=== PATIENT | male | born 1950 | race Caucasian/White ===

== ENCOUNTER 2018-05-25 07:12 | Day surgery (SDC) | payer MEDICARE, BC ==
[2018-05-25] VITALS (15 sets, daily range): BP systolic 106–138; BP diastolic 61–89
[~2018-05-25] VITALS: Ht 175.3 cm; Wt 88.5 kg
[2018-05-25] MEDS ORDERED: normal saline 1000ml 1,000 ML IV SCH (07:40)
[2018-05-25] MEDS ORDERED: MIDAZolam 5mg/ml 2ml vial IV ONE (07:40)
[2018-05-25] MEDS ORDERED: fentaNYL/PF 50MCG/1 ML 2ML syringe IV ONE (07:40)
[2018-05-25 08:02] LABS: ALBUMIN 3.6 G/DL (3.4-5.0); ANION GAP 10 (8-16); BLOOD UREA NITROGEN 19 MG/DL (7-18); CALCIUM 8.6 MG/DL (8.5-10.1); CHLORIDE 102 MMOL/L (99-107); CREATININE 1.12 MG/DL (0.60-1.10); GLUCOSE 82 MG/DL (70-104); MAGNESIUM 1.8 MG/DL (1.5-2.4); POTASSIUM 4.3 MMOL/L (3.5-5.1); SODIUM 139 MMOL/L (135-145); TOTAL CARBON DIOXIDE 26.9 MMOL/L (24-32); eGFR 66 ML/MIN
[2018-05-25 08:08] LABS: BASOPHILS % (AUTO) 0.7 % (0-1); EOSINOPHILS # (AUTO) 0.1 X10'3 (0-0.9); EOSINOPHILS % (AUTO) 3.2 % (0-6); LYMPHOCYTES # (AUTO) 1.2 X10'3 (1.1-4.8); LYMPHOCYTES % (AUTO) 26.1 % (21-51); MEAN CORPUSCULAR HGB CONC 33.4 % (33.0-36.5); MEAN CORPUSCULAR VOLUME 95.9 FL (78-98); MEAN PLATELET VOLUME 8.3 FL (7.4-10.4); MONOCYTES # (AUTO) 0.2 X10'3 (0-0.9); MONOCYTES % (AUTO) 5.2 % (2-12); NEUTROPHILS % (AUTO) 64.8 % (42-75); PRE OP HEMATOCRIT 49.8 % (42.0-52.0); PRE OP HEMOGLOBIN 16.6 g/dL (14.0-17.9); PRE OP PLATELET COUNT 172 X10'3 (140-440); RED BLOOD COUNT 5.19 X10'6 (4.70-6.10); RED CELL DISTRIBUTION WIDTH 12.9 % (11.5-14.5)
[2018-05-25] MEDS ORDERED: pneumococcal 23-VAL P-sac vacc 25 mcg/0.5ml vial IMVAC ONE (08:10)
[2018-05-25 08:57] LABS: PROTHROMBIN TIME 10.4 SECONDS (9.0-12.0)
[2018-05-25] MEDS ORDERED: LOSA25TA96 PO (10:10)
[2018-05-25] MEDS ORDERED: APIX5TAB3 PO (10:10)
[2018-05-25] MEDS ORDERED: FLEC100T2 PO (10:10)
[2018-05-25] MEDS ORDERED: VERA240T PO (10:10)
[2018-05-25] MEDS ORDERED: AMPH20CA3 PO (10:10)
[2018-05-25] MEDS ORDERED: TADA5TAB2 PO (10:10)
== END 2018-05-25 11:05 | disposition home or self-care (01) ==
LOC: SSTAY O 07:12
PROVIDERS: ATTEND Internal Medicine Cardiovascular Disease
DX: I48.91 Unspecified atrial fibrillation (principal); F98.8 Other specified behavioral and emotional disorders with onset usually occurring in childhood and adolescence; Z96.652 Presence of left artificial knee joint; Z98.890 Other specified postprocedural states
CPT/HCPCS: 36415; 80048; 83735; 85025; 85610; 92960; 93005; J2250; J3010; J7030

== ENCOUNTER 2023-03-07 06:42 | Day surgery (SDC) | payer MEDICARE, BC ==
[~2023-03-07] VITALS: Ht 175.3 cm; Wt 99.1 kg
[~2023-03-07 06:42] MED LIST: AMPH20CA3 PO; APIX5TAB3 PO; FLEC100T2 PO; LOSA25TA96 PO; TADA5TAB2 PO; VERA240T PO
[2023-03-07] MEDS ORDERED: MIDAZolam 1mg/ml 10ml vial IV ONE (07:00)
[2023-03-07] MEDS ORDERED: normal saline 1000ml 1,000 ML IV SCH (07:00)
[2023-03-07] MEDS ORDERED: fentaNYL/PF 50MCG/1 ML 2ML syringe IV ONE (07:00)
[2023-03-07 07:20] VITALS: BP 119/76; PULSE 57; RESP 16; TEMP 98.2; O2SAT 95
[2023-03-07 07:42] LABS: BASOPHILS # (AUTO) 0.1 X10'3 (0-0.2); BASOPHILS % (AUTO) 1.6 % (0-1); EOSINOPHILS # (AUTO) 0.1 X10'3 (0-0.9); EOSINOPHILS % (AUTO) 1.6 % (0-6); LYMPHOCYTES # (AUTO) 1.5 X10'3 (1.1-4.8); LYMPHOCYTES % (AUTO) 28.5 % (21-51); MEAN CORPUSCULAR HEMOGLOBIN 32.8 PG (27.0-31.0); MEAN CORPUSCULAR HGB CONC 34.2 g/dL (33.0-36.5); MEAN CORPUSCULAR VOLUME 96.1 FL (78-98); MEAN PLATELET VOLUME 8.6 FL (7.4-10.4); MONOCYTES # (AUTO) 0.4 X10'3 (0-0.9); MONOCYTES % (AUTO) 7.5 % (2-12); NEUTROPHILS # (AUTO) 3.2 X10'3 (1.8-7.7); NEUTROPHILS % (AUTO) 60.8 % (42-75); PLATELET COUNT 164 X10'3 (140-440); RED BLOOD COUNT 5.52 X10'6 (4.70-6.10); RED CELL DISTRIBUTION WIDTH 14.8 % (11.5-14.5); WHITE BLOOD COUNT 5.2 X10'3 (4.5-11.0)
[2023-03-07 07:46] LABS: HEMOGLOBIN 18.1 g/dl (14.0-17.9)
[2023-03-07] MEDS ORDERED: LOSA50TA64 PO (08:01)
[2023-03-07] MEDS ORDERED: CHOL10006 PO (08:13)
[2023-03-07] MEDS ORDERED: MULT-1085 PO (08:13)
[2023-03-07] MEDS ORDERED: ZINC50TA60 PO (08:13)
[2023-03-07] MEDS ORDERED: MAGN250T11 PO (08:13)
[2023-03-07] MEDS ORDERED: TESTOSTERONE (08:13)
[2023-03-07] MEDS ORDERED: FLO0.4C (08:18)
[2023-03-07] MEDS ORDERED: LISD60CA PO (08:18)
[2023-03-07] MEDS ORDERED: QUET50TA24 (08:18)
[2023-03-07] MEDS ORDERED: PROP10TA10 (08:18)
[2023-03-07] MEDS ORDERED: AMLO5TAB16 PO (08:18)
[2023-03-07 08:47] LABS: ALBUMIN 3.7 G/DL (3.4-5.0); ANION GAP 11 (8-16); BLOOD UREA NITROGEN 19 MG/DL (7-18); BUN/CREATININE RATIO 14.4 (10.0-20.0); CHLORIDE 100 MMOL/L (99-107); CREATININE 1.32 MG/DL (0.60-1.10); POTASSIUM 4.2 MMOL/L (3.5-5.1); SODIUM 138 MMOL/L (135-145); TOTAL CARBON DIOXIDE 27.5 MMOL/L (24-32); eGFR 54 ML/MIN
[2023-03-07 09:30] LABS: GLUCOSE 88 MG/DL (70-104); MAGNESIUM 1.8 MG/DL (1.5-2.4)
== END 2023-03-07 12:05 | disposition home or self-care (01) ==
LOC: SSTAY O 06:42
PROVIDERS: ATTEND Internal Medicine Cardiovascular Disease
DX: I48.91 Unspecified atrial fibrillation (principal); Z53.29 Procedure and treatment not carried out because of patient's decision for other reasons; I10 Essential (primary) hypertension; F98.8 Other specified behavioral and emotional disorders with onset usually occurring in childhood and adolescence; Z79.01 Long term (current) use of anticoagulants; Z79.899 Other long term (current) drug therapy; Z98.890 Other specified postprocedural states; Z96.652 Presence of left artificial knee joint
CPT/HCPCS: 36415; 80048; 83735; 85025; 85610; 93005; J2250; J3010; J7030; A4620

== ENCOUNTER 2023-03-10 07:43 | Day surgery (SDC) | payer MEDICARE, BC ==
[~2023-03-10] VITALS: Ht 172.7 cm; Wt 99.8 kg
[2023-03-10] VITALS (12 sets, daily range): BP systolic 119–157; BP diastolic 72–115; PULSE 49–76; RESP 12–18; TEMP 98.1; O2SAT 95–97
[~2023-03-10 07:43] MED LIST changes: +AMLO5TAB16 PO; -AMPH20CA3 PO; +CHOL10006 PO; +FLO0.4C; +LISD60CA PO; -LOSA25TA96 PO; +LOSA50TA64 PO; +MAGN250T11 PO; +MULT-1085 PO; +PROP10TA10; +QUET50TA24; +TESTOSTERONE; -VERA240T PO; +ZINC50TA60 PO
[2023-03-10] MEDS ORDERED: normal saline 1000ml 1,000 ML IV SCH (08:00)
[2023-03-10] MEDS ORDERED: MIDAZolam 1mg/ml 10ml vial IV ONE (08:00)
[2023-03-10] MEDS ORDERED: fentaNYL/PF 50MCG/1 ML 2ML syringe IV ONE (08:00)
== END 2023-03-10 11:05 | disposition home or self-care (01) ==
LOC: SSTAY O 07:43
PROVIDERS: ATTEND Internal Medicine Cardiovascular Disease
DX: I48.91 Unspecified atrial fibrillation (principal); I10 Essential (primary) hypertension; F98.8 Other specified behavioral and emotional disorders with onset usually occurring in childhood and adolescence; Z79.899 Other long term (current) drug therapy; Z79.01 Long term (current) use of anticoagulants; Z96.652 Presence of left artificial knee joint; Z98.890 Other specified postprocedural states
CPT/HCPCS: 92960; 93005; J2250; J3010; J7030

== ENCOUNTER 2024-09-27 07:49 | Day surgery (SDC) | payer MEDICARE, BC ==
[~2024-09-27] VITALS: Ht 175.3 cm; Wt 94.1 kg
[2024-09-27] VITALS (7 sets, daily range): BP systolic 95–131; BP diastolic 46–80; PULSE 42–77; RESP 8–19; TEMP 98.5; O2SAT 88–96
[2024-09-27] MEDS ORDERED: SPIR25TA5 (08:17)
[2024-09-27] MEDS ORDERED: cefazolin 2gm/D5W 100mL 100 ML IV ONE (08:50)
[2024-09-27 08:52] LABS: ALBUMIN 3.4 G/DL (3.4-5.0); ANION GAP 8 (8-16); BASOPHILS % (AUTO) 0.5 % (0-1); BLOOD UREA NITROGEN 17 MG/DL (7-18); BUN/CREATININE RATIO 14.3 (10.0-20.0); CALCIUM 8.8 MG/DL (8.5-10.1); CHLORIDE 100 MMOL/L (99-107); CREATININE 1.19 MG/DL (0.60-1.10); EOSINOPHILS # (AUTO) 0.1 X10'3 (0-0.9); GLUCOSE 95 MG/DL (70-104); HEMATOCRIT 49.2 % (42.0-52.0); HEMOGLOBIN 16.5 g/dl (14.0-17.9); LYMPHOCYTES # (AUTO) 1.2 X10'3 (1.1-4.8); LYMPHOCYTES % (AUTO) 16.7 % (21-51); MAGNESIUM 2.1 MG/DL (1.5-2.4); MEAN CORPUSCULAR HEMOGLOBIN 31.9 PG (27.0-31.0); MEAN CORPUSCULAR HGB CONC 33.4 g/dL (33.0-36.5); MEAN CORPUSCULAR VOLUME 95.5 FL (78-98); MEAN PLATELET VOLUME 8.3 FL (7.4-10.4); MONOCYTES # (AUTO) 0.5 X10'3 (0-0.9); MONOCYTES % (AUTO) 7.6 % (2-12); NEUTROPHILS # (AUTO) 5.2 X10'3 (1.8-7.7); NEUTROPHILS % (AUTO) 73.2 % (42-75); PLATELET COUNT 194 X10'3 (140-440); POTASSIUM 4.1 MMOL/L (3.5-5.1); RED BLOOD COUNT 5.16 X10'6 (4.70-6.10); RED CELL DISTRIBUTION WIDTH 15.3 % (11.5-14.5); SODIUM 135 MMOL/L (135-145); TOTAL CARBON DIOXIDE 26.8 MMOL/L (24-32); WHITE BLOOD COUNT 7.1 X10'3 (4.5-11.0); eCRCL 56 ML/MIN; eGFR 60 ML/MIN
[2024-09-27 08:53] LABS: PROTHROMBIN TIME 10.8 SECONDS (9.0-12.0)
[2024-09-27] MEDS ORDERED: ceFAZolin 2gm in dextrose, iso 50 ML IV ONE (08:54)
[2024-09-27] MEDS ORDERED: LIDOcaine 1% W/epiNEPHrine 1:100,000 20ml vial ONE (08:54)
[2024-09-27] MEDS ORDERED: fentaNYL/PF 50MCG/1 ML 2ML syringe ONE ×2 (08:54→10:28)
[2024-09-27] MEDS ORDERED: vancomycin 1,000mg inj ONE (08:55)
[2024-09-27] MEDS ORDERED: midazolam 1 mg/ML 2ml injection ONE ×6 (08:55→11:25)
[2024-09-27] MEDS: VANCOMYCIN/H2O 1.5g/300mL PB 300 ML IV ONE (09:00)
[2024-09-27] MEDS ORDERED: iohexol 350 MG/ML 50ML vial IV ONE ×2 (09:23→10:15)
[2024-09-27] MEDS ORDERED: HYDROmorphone 1 mg/ml syringe ONE ×2 (09:55→10:50)
[2024-09-27] MEDS ORDERED: proCHLORperazine 10 MG/2 ml inj ONE (11:21)
[2024-09-27] MEDS ORDERED: flumazenil 0.1 mg/ml inj. 10mL vial IV ONE (11:34)
[2024-09-27] MEDS ORDERED: normal saline 500ml IV soln 500 ML IV ONE (12:10)
== END 2024-09-27 13:25 | disposition home or self-care (01) ==
LOC: SSTAY O 07:49
PROVIDERS: ATTEND Internal Medicine Cardiovascular Disease
DX: I44.7 Left bundle-branch block, unspecified (principal); I42.0 Dilated cardiomyopathy; I48.91 Unspecified atrial fibrillation; I42.9 Cardiomyopathy, unspecified; I50.22 Chronic systolic (congestive) heart failure; I11.0 Hypertensive heart disease with heart failure; Z79.01 Long term (current) use of anticoagulants; Z79.899 Other long term (current) drug therapy; Z98.890 Other specified postprocedural states
CPT/HCPCS: 33225; 33249; 36415; 71045; 80048; 83735; 85025; 85610; 92960; 93005; 99152; 99153; A4565; A4615; C1769; C1882; J0780; J1171; J2250; J3010; J3370; J3372; J3490; J7030; Q9967; Z7610; C1895; C1898; C1900

== ENCOUNTER 2025-02-18 08:47 | Day surgery (SDC) | payer MEDICARE, BC ==
[~2025-02-18] VITALS: Ht 175.3 cm; Wt 95.4 kg
[2025-02-18] VITALS (7 sets, daily range): BP systolic 103–121; BP diastolic 69–88; PULSE 60–92; RESP 14–18; TEMP 97.6; O2SAT 93–96
[~2025-02-18 08:47] MED LIST changes: -CHOL10006 PO; -FLO0.4C; -MAGN250T11 PO; -MULT-1085 PO; -PROP10TA10; +SPIR25TA5; +TAMS-55; -ZINC50TA60 PO
[2025-02-18] MEDS ORDERED: atropine 0.1mg/ml 10ml syringe ONE (09:14)
[2025-02-18] MEDS ORDERED: amiodarone 50MG/ML inj IV ONE (09:14)
--- NOTE | 2025-02-18 09:33 | ELECTROCARDIOGRAPH REPORT ---
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 SHRADDHA Owen Measurements Intervals [place] Rate: 70 P: 0 [place]: 87 QRS: 263 QRSD: 179 T: 76 QT: 483 QTc: 522 Interpretive Statements Ventricular-paced complexes No further analysis attempted due to paced rhythm Electronically Signed On 02-18-2025 17:32:[address] SHRADDHA Owen Please click the below link to view image of tracing.
[2025-02-18] MEDS ORDERED: midazolam 1 mg/ML 2ml injection ONE ×2 (09:48→09:50)
[2025-02-18] MEDS ORDERED: fentaNYL/PF 50MCG/1 ML 2ML syringe ONE (09:49)
[2025-02-18 10:01] LABS: MEAN PLATELET VOLUME 8.2 FL (7.4-10.4); RED CELL DISTRIBUTION WIDTH 14.0 % (11.5-14.5)
[2025-02-18] MEDS ORDERED: AMI200T PO (10:09)
[2025-02-18] MEDS ORDERED: METO-395 PO (10:09)
[2025-02-18] MEDS ORDERED: QUET50TA15 PO (10:09)
[2025-02-18] MEDS ORDERED: MIDAZolam 1mg/ml 10ml vial IV ONE (10:10)
[2025-02-18] MEDS ORDERED: normal saline 1000ml 1,000 ML IV SCH (10:10)
[2025-02-18] MEDS ORDERED: fentaNYL/PF 50MCG/1 ML 2ML syringe IV ONE (10:10)
[2025-02-18 10:13] LABS: INR 1.1 INR
[2025-02-18 10:25] LABS: CREATINE KINASE MB 2.1 ng/ml (0.3-3.6); CREATININE 1.25 MG/DL (0.60-1.10); TOTAL CARBON DIOXIDE 27.3 MMOL/L (24-32); eCRCL 53 ML/MIN; eGFR 57 ML/MIN
--- NOTE | 2025-02-18 11:00 | ELECTROCARDIOGRAPH REPORT ---
[facility] Test Date: 2025-02-18 Test Time: 10:58:42 Pat Name: DEEPALI BENSON Department: [facility] Patient ID: [facility]-[id number] Room: Gender: M Relay Technician: ELIOT : 1950 Requested By: LILIANE GAN Order Number: [id number] Reading MD: Dr. SHRADDHA Owen Measurements Intervals [place] Rate: 60 P: 89 [place]: 135 QRS: 268 QRSD: 179 T: 83 QT: 492 QTc: 492 Interpretive Statements Atrial-ventricular dual-paced rhythm No further analysis attempted due to paced rhythm Electronically Signed On 02-18-2025 17:32:[address] SHRADDHA Owen Please click the below link to view image of tracing.
--- NOTE | 2025-02-18 11:30 | GI LAB REPORT ---
DATE OF PROCEDURE: 02/18/2025 DICTATING PHYSICIAN: DYLAN GAN DO PROCEDURE NOTE REFERRING PHYSICIAN: Dylan Gan DO PROCEDURES PERFORMED: DC cardioversion. PREPROCEDURAL DIAGNOSIS: Atrial flutter. POSTPROCEDURAL DIAGNOSIS: Atrial flutter cardioverted to an organized rhythm. DESCRIPTION OF PROCEDURE: The patient was sedated with fentanyl and Versed. He was then given one 200 joule synchronized shock resulting in conversion to 100% AV pacing. COMPLICATIONS: There were no complications. FINAL DIAGNOSIS: Atrial flutter successfully converted to an organized AV pacing rhythm. PLAN: Ongoing medical therapy. DYLAN GAN DO TID: [id number] RECEIPT: [id number] DANYELLE/CARMELLA
== END 2025-02-18 12:00 | disposition home or self-care (01) ==
LOC: SSTAY O 08:47
PROVIDERS: ATTEND Internal Medicine Cardiovascular Disease
DX: I48.92 Unspecified atrial flutter (principal); I48.91 Unspecified atrial fibrillation; I10 Essential (primary) hypertension; I42.9 Cardiomyopathy, unspecified; Z95.810 Presence of automatic (implantable) cardiac defibrillator; Z79.899 Other long term (current) drug therapy; Z98.890 Other specified postprocedural states; Z79.01 Long term (current) use of anticoagulants; F98.8 Other specified behavioral and emotional disorders with onset usually occurring in childhood and adolescence
CPT/HCPCS: 36415; 80048; 82553; 83735; 85025; 85610; 92960; 93005; J2250; J3010; J7030; Z7610; 99152; J0282; J0461

== ENCOUNTER 2025-04-29 07:43 | Day surgery (SDC) | payer MEDICARE, BC ==
[~2025-04-29] VITALS: Ht 175.3 cm; Wt 95.8 kg
[~2025-04-29 07:43] MED LIST changes: +AMIO200T76 PO; -FLEC100T2 PO; -LISD60CA PO; +METO-395 PO; +QUET50TA15 PO; -QUET50TA24; -TAMS-55
[2025-04-29] MEDS ORDERED: amiodarone 50MG/ML inj IV ONE (07:56)
[2025-04-29] MEDS ORDERED: atropine 0.1mg/ml 10ml syringe ONE (07:56)
--- NOTE | 2025-04-29 08:11 | ELECTROCARDIOGRAPH REPORT ---
[facility] Test Date: 2025-04-29 Test Time: 08:09:01 Pat Name: DEEPALI BENSON Department: [facility] Patient ID: [id number] Room: Gender: M Diagnostic Radiologist: ELIOT : 1950 Requested By: LILIANE GAN Order Number: [id number] Reading MD: Dr. SHRADDHA Owen Measurements Intervals [place] Rate: 60 P: 0 SC: 0 QRS: -89 QRSD: 161 T: 82 QT: 496 QTc: 496 Interpretive Statements Afib/flutter and ventricular-paced rhythm No further analysis attempted due to paced rhythm Electronically Signed On 04-30-2025 19:12:[address] SHRADDHA Owen Please click the below link to view image of tracing.
[2025-04-29] MEDS ORDERED: MIDAZolam 1mg/ml 10ml vial IV ONE (08:15)
[2025-04-29] MEDS ORDERED: fentaNYL/PF 50MCG/1 ML 2ML syringe IV ONE (08:15)
[2025-04-29] MEDS ORDERED: normal saline 1000ml 1,000 ML IV SCH (08:15)
[2025-04-29] MEDS ORDERED: TAMS-55 PO (08:24)
[2025-04-29] MEDS ORDERED: LISD60CA2 PO (08:24)
[2025-04-29 08:43] LABS: MEAN PLATELET VOLUME 8.5 FL (7.4-10.4); RED CELL DISTRIBUTION WIDTH 13.4 % (11.5-14.5)
[2025-04-29 08:57] LABS: INR 1.1 INR
[2025-04-29 09:00] VITALS: RESP 15; O2SAT 96
[2025-04-29] MEDS ORDERED: midazolam 1 mg/ML 2ml injection ONE ×3 (09:01→09:36)
[2025-04-29] MEDS ORDERED: fentaNYL/PF 50MCG/1 ML 2ML syringe ONE (09:01)
[2025-04-29 09:12] LABS: CREATININE 1.35 MG/DL (0.60-1.10); MYOGLOBIN 79.0 ng/ml (16-96); TOTAL CARBON DIOXIDE 30.1 MMOL/L (24-32); eCRCL 49 ML/MIN; eGFR 52 ML/MIN
[2025-04-29 09:56] VITALS: BP 143/97; PULSE 89; RESP 11; O2SAT 95
[2025-04-29 10:00] VITALS: BP 142/95; PULSE 89; RESP 12; O2SAT 94
[2025-04-29 10:15] VITALS: BP 148/94; PULSE 89; RESP 13; O2SAT 97
--- NOTE | 2025-04-29 10:22 | ELECTROCARDIOGRAPH REPORT ---
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 SHRADDHA Owen Measurements Intervals [place] Rate: 89 P: 84 SC: 138 QRS: 254 QRSD: 173 T: 65 QT: 464 QTc: 565 Interpretive Statements Atrial-ventricular dual-paced rhythm No further analysis attempted due to paced rhythm Electronically Signed On 04-30-2025 19:12:[address] SHRADDHA Owen Please click the below link to view image of tracing.
--- NOTE | 2025-04-30 06:00 | CARDIOLOGY REPORT ---
DATE OF SERVICE: 04/29/2025 DICTATING PHYSICIAN: LILIANE GAN DO PROCEDURE: DC cardioversion. PREPROCEDURAL DIAGNOSIS: Atrial fibrillation. POSTPROCEDURAL DIAGNOSIS: Atrial fibrillation, cardioverted to sinus rhythm. DESCRIPTION OF PROCEDURE: The patient was sedated with fentanyl and Versed. He was then given one 200 joule synchronized shock resulting in conversion to sinus rhythm, P-wave sensing and ventricular pacing. COMPLICATIONS: There were no complications. PLAN: Ongoing medical therapy. FINAL DIAGNOSIS: Atrial fibrillation, cardioverted to sinus rhythm. LILIANE GAN DO TID: [id number] RECEIPT: [id number] DANYELLE/SETH
== END 2025-04-29 10:35 | disposition home or self-care (01) ==
LOC: SSTAY O 07:43
PROVIDERS: ATTEND Internal Medicine Cardiovascular Disease
DX: I48.4 Atypical atrial flutter (principal); I48.91 Unspecified atrial fibrillation; I42.9 Cardiomyopathy, unspecified; I10 Essential (primary) hypertension; Z79.01 Long term (current) use of anticoagulants; Z79.899 Other long term (current) drug therapy; Z95.0 Presence of cardiac pacemaker; Z96.652 Presence of left artificial knee joint; Z98.890 Other specified postprocedural states
CPT/HCPCS: 36415; 80048; 83874; 85025; 85610; 92960; 93005; J2250; J3010; J7030; Z7610; 99152; J0282; J0461